=== PATIENT | female | born 1940 | race Caucasian/White ===

== ENCOUNTER → 2017-05-18 | Outpatient (CLI) | payer MEDICARE, BC ==
[2014-07-19 12:54] VITALS: BP 162/84
[~2017-05-18] MED LIST: CHILDREN'S ASPI81 M1 PO; DIABETA5 MG PO; DIOVAN40 MG PO; DIOVAN80 MG PO; IRON90 MG PO; METFORMIN500 MG PO; METOPROLOL SUCC25 M1 PO
== END ==
LOC: RAD 08:02
DX: M85.88 Other specified disorders of bone density and structure, other site (principal); M85.862 Other specified disorders of bone density and structure, left lower leg; M85.861 Other specified disorders of bone density and structure, right lower leg

== ENCOUNTER → 2017-05-18 | Outpatient (CLI) | payer MEDICARE, BC ==
[2014-07-19 12:54] VITALS: BP 162/84
== END ==
LOC: MAMMO 08:01 → RAD 08:30
DX: Z12.31 Encounter for screening mammogram for malignant neoplasm of breast (principal)

== ENCOUNTER 2018-07-06 08:20 | Outpatient (RCR) | payer MEDICARE, BC ==
[2014-07-19 12:54] VITALS: BP 162/84
== END 2018-07-08 | disposition home or self-care (01) ==
LOC: CARDREHAB
DX: I25.10 Atherosclerotic heart disease of native coronary artery without angina pectoris (principal); Z95.5 Presence of coronary angioplasty implant and graft

== ENCOUNTER 2018-08-22 08:20 | Outpatient (RCR) | payer MEDICARE, BC ==
[2014-07-19 12:54] VITALS: BP 162/84
== END 2018-10-09 | disposition home or self-care (01) ==
LOC: CARDREHAB
DX: Z48.812 Encounter for surgical aftercare following surgery on the circulatory system (principal); Z95.5 Presence of coronary angioplasty implant and graft

== ENCOUNTER → 2019-07-23 | Outpatient (CLI) | payer MEDICARE, BC ==
[2014-07-19 12:54] VITALS: BP 162/84
== END ==
LOC: MAMMO 05-28 08:30
DX: Z12.31 Encounter for screening mammogram for malignant neoplasm of breast (principal)

== ENCOUNTER → 2019-07-23 | Outpatient (CLI) | payer MEDICARE, BC ==
[2014-07-19 12:54] VITALS: BP 162/84
== END ==
LOC: MAMMO 05-28 09:15
DX: Z13.820 Encounter for screening for osteoporosis (principal); M85.80 Other specified disorders of bone density and structure, unspecified site

== ENCOUNTER → 2020-12-08 | Outpatient (CLI) | payer MEDICARE, BC | LOC: MAMMO 08:39 | DX: Z12.31 Encounter for screening mammogram for malignant neoplasm of breast (principal) ==